=== PATIENT | male | born 1945 | race Caucasian/White ===

== ENCOUNTER 2017-01-17 22:37 | Emergency (ER) | payer MEDICARE, OTHER ==
[~2017-01-17] VITALS: Ht 167.6 cm; Wt 87.1 kg
[2017-01-17] MEDS ORDERED: IPRATRPIUM/ALBUTEROL 0.5/2.5MG 3 ML NEBU. NEB ONE (23:00)
[2017-01-17] MEDS ORDERED: IOHEXOL 300 MG/ML 75 ML VIAL. IV ONE (23:00)
[2017-01-17] MEDS ORDERED: methylPREDNISolone SOD SUCC PF 125 MG/2 ML VIAL. IV ONE (23:00)
[2017-01-17] MEDS ORDERED: CONTRAST GIVEN MC PRN (23:15)
[2017-01-17 23:16] LABS: BASO % 0 % (0-3); EOS % 0 % (0-3); HEMOGLOBIN 15.7 g/dL (13.0-17.5); LYMPH # 0.4 x10^3/uL (1.0-4.8); LYMPH % 2 % (24-48); MEAN CORPUSCULAR HEMOGLOBIN 30 pg (25-35); MEAN CORPUSCULAR HGB CONC 33 g/dL (31-37); MEAN CORPUSCULAR VOLUME 91 fL (79-100); MONO # 0.4 x10^3/uL (0.0-1.1); MONO % 2 % (0-9); NEUT % 97 % (31-73); PLATELET COUNT 156 x10^3/uL (140-400); RED BLOOD COUNT 5.16 x10^6/uL (4.30-5.70); RED CELL DISTRIBUTION WIDTH 14.3 % (11.5-14.5); WHITE BLOOD COUNT 23.8 x10^3/uL (4.0-11.0)
--- NOTE | 2017-01-17 23:34 | EKG ---
[address] [address] Test Date: 2017-01-17 Test Time: 23:24:49 Pat Name: JYOTI JACQUES Department: Room: Gender: M Criminal Defense Attorney: MIKE : 1945 Requested By: ARMAND FALK Order Number: [id number] Reading MD: Dilshad Landa MD Measurements Intervals [place] Rate: 92 P: 49 SC: 160 QRS: 75 QRSD: 102 T: 74 QT: 342 QTc: 428 Interpretive Statements SINUS RHYTHM Electronically Signed On 01-21-2017 14:11:32 [employer] by Dilshad Landa MD
[2017-01-17 23:39] LABS: ALBUMIN 1.6 g/dL (3.4-5.0); ALBUMIN/GLOBULIN RATIO 0.4 (1.0-1.7); CALCIUM 7.8 mg/dL (8.5-10.1); CREATININE 2.4 mg/dL (0.7-1.3); GFR 26.7; TOTAL BILIRUBIN 0.8 mg/dL (0.2-1.0); TOTAL PROTEIN 5.9 g/dL (6.4-8.2)
[2017-01-17 23:45] LABS: POTASSIUM 6.7 mmol/L (3.5-5.1)
[2017-01-17] MEDS ORDERED: IV NORMAL SALINE 1,000ML 1,000 ML IV ONE (23:45)
[2017-01-17 23:53] LABS: % BANDS 9 % (0-9); % LYMPHS 2 % (24-48); % MONOS 2 % (0-10); % SEGS 87 % (35-66); PLT ESTIMATE ADEQUATE (ADEQUATE)
[2017-01-18] MEDS ORDERED: INSULIN REGULAR 100 UNIT/ML 10ML VIAL. IV ONE
[2017-01-18] MEDS ORDERED: DEXTROSE 50% 25 GM / 50ML DISP.SYRIN. IV ONE
[2017-01-18] MEDS ORDERED: SODIUM POLYSTYRENE SULFONATE 15 GM/60 ML ORAL.SUSP. PO ONE
[2017-01-18] MEDS ORDERED: SODIUM BICARB ADULT 8.4% 50 MEQ/50 ML DISP.SYRIN. IV ONE
--- NOTE | 2017-01-18 00:27 | RAD ---
RS Compliance Statement: One or more of the following individualized dose reduction techniques were utilized for this examination: 1. Automated exposure control 2. Adjustment of the mA and/or kV according to patient size 3. Use of iterative reconstruction technique CT head without contrast 01/17/2017 11:50 PM INDICATION: Headache, weakness and slurred speech. History of lung and renal cancer. COMPARISON: None available. TECHNIQUE: Multiple axial CT images of the head were obtained from skull base through the vertex without intravenous contrast. FINDINGS: Head: Ventricles, sulci and basal cisterns are within normal limits. There is a 7 mm hyperattenuating lesion in the right postcentral gyrus, image 24). There is suggestion of subtle hypoattenuation along the margin which may reflect vasogenic edema. There is a hypoattenuating lesion in the left frontal lobe measuring 1.8 x 1.6 cm which may reflect vasogenic edema from underlying metastatic lesion. An additional hypoattenuating lesion in the anterior left temporal lobe measures 1.9 x 1.7 cm. There is no hydrocephalus. Posterior fossa is normal in appearance. Visualized portions of the orbits are normal. Paranasal sinuses are well aerated. Mastoid air cells are well aerated. Scalp and calvaria are normal. IMPRESSION: 1. Hyperattenuating focus in the right postcentral gyrus measuring 7 mm may represent a hemorrhagic metastasis versus cavernoma. Further evaluation with MRI with without contrast may be of benefit. 2. Hypoattenuating lesions in the left frontal, temporal lobes may represent vasogenic edema from underlying metastasis. This may be further evaluated with an MRI with and without contrast. Electronically signed by: Janelle Oliveira MD (01/18/2017 12:24 AM) [id number]
--- NOTE | 2017-01-18 01:11 | RAD ---
PQRS Compliance Statement: One or more of the following individualized dose reduction techniques were utilized for this examination: 1. Automated exposure control 2. Adjustment of the mA and/or kV according to patient size 3. Use of iterative reconstruction technique CT chest, abdomen and pelvis without contrast January 17, 2017 INDICATION: Weakness, fatigue. Lower abdominal pain. Chest pain. Shortness of air. History of end-stage lung and renal cancer. COMPARISON: None available TECHNIQUE: Multiple axial CT images of the chest, abdomen and pelvis were obtained without intravenous contrast. Coronal and sagittal reformats are provided. FINDINGS: CHEST: There is minimal heterogeneity of the right thyroid gland. There is a prominent right axillary lymph node measuring 1.3 cm by short axis. Right superior paratracheal lymph node measures 1.6 cm by short axis. Right paratracheal lymph node measures 1.7 cm by short axis. Right precarinal lymph node measures 2.2 cm by short axis. Subcarinal shakir conglomerate measures at least 6.6 x 4.1 cm. Findings are contiguous with a right infrahilar mass. Prevascular lymph node measures 2.8 cm by short axis. Left hilar lymph node measures 2.3 cm by short axis. Heart size is within normal limits. Thoracic aorta is normal in course and caliber. Coronary artery vascular calculations are present. There is no pericardial effusion. There is a small right pleural effusion with right lower lobe atelectasis. There is a right infrahilar mass with indistinct borders, limiting evaluation without intravenous contrast. There is complete occlusion of the right lower lobe bronchus with associated obstructive atelectasis. Right middle lobe and right upper lobe airways are patent. Mild paraseptal emphysema is present. There is a 7 mm solid noncalcified pulmonary nodule in the right upper lobe (series 2, image 39). There is a 7 mm solid noncalcified pulmonary nodule in the right upper lobe (series 2, image 47). Subpleural interstitial changes are noted in the left lung base. There is a left upper lobe mass measuring 2.1 x 1.6 cm. Solid noncalcified pulmonary nodule measures 8 mm in the left upper lobe (series 2, image 51). Nodular opacity in the left upper lobe measures 1.1 cm (series 2, image 43). There is a 6 mm solid noncalcified pulmonary nodule in the left lower lobe (series 2, image 54). ABDOMEN/PELVIS: Evaluation of the solid abdominal viscera is limited by lack of intravenous contrast. There is a 6 mm hypodense lesion in the right hepatic lobe which is indeterminate. Spleen is nonenlarged. Left adrenal nodule measures 3.2 x 1.5 cm. Right adrenal nodule measures 2.1 x 1.8 cm. Extensive peripancreatic inflammatory changes are present suggestive of pancreatitis. Findings are limited without intravenous contrast administration. Small volume free fluid is identified within the upper abdomen, especially along the greater curvature of the stomach and perihepatic region. Peripancreatic fluid is present, none of which appears encapsulated. Hyperattenuating material is noted with the gallbladder, which is nonspecific. The abdominal aorta is normal in course and caliber. There are scattered atherosclerotic ossification. A pao hepatis lymph node measures 10 mm by short axis. Left periaortic lymph node measures 9 mm by short axis. Gastrohepatic ligament nodes are present measuring up to 10 mm by short axis. Aortocaval lymph node measures 1.2 cm by short axis (series 2, image 121). Peripancreatic lymphadenopathy is noted measuring up to 1.2 cm by short axis (series 2, image 101). There is associated reactive changes involving the third and fourth portion of the duodenum. There is no free intraperitoneal air. There is a 1.9 x 1.7 cm exophytic lesion arising from the midpole of the right kidney which is indeterminate. Superior pole left kidney cystic lesion measures 2.1 cm. There is no hydronephrosis. No renal calculi are identified. Extensive colonic diverticulosis is noted with mural thickening in the sigmoid colon most suggestive of muscular hypertrophy rather than acute inflammatory changes. There is circumferential wall thickening involving the proximal transverse colon with associated inflammatory changes centered in regions of diverticula. Findings may represent diverticulitis versus adjacent reactive changes secondary to pancreatitis. Urinary bladder is within normal limits given degree of distention. Small volume free fluid is noted within the pelvis. Prostate and seminal vesicles are present. Right inguinal lymph node measures 2.4 cm by short axis. Right external iliac lymph node measures 10 mm by short axis. Additional right iliac lymph node more proximally measures 1.3 cm by short axis. Advanced degenerative changes are identified at L4-L5 with partial osseous fusion. No suspicious osseous lesions are identified. IMPRESSION: 1. Right infrahilar mass is incompletely evaluated without intravenous contrast. There is associated obstruction of the right lower lobe bronchus with obstructive atelectasis of the right lower lobe. There is small to moderate right pleural effusion. Hilar, mediastinal and right axillary lymphadenopathy is present, as detailed above. 2. Bilateral adrenal nodules suspicious for metastasis. 3. Extensive peripancreatic inflammatory changes most suggestive of interstitial edematous pancreatitis. There is small volume free fluid within the upper abdomen without a definite encapsulated fluid collection. No hemorrhagic components are identified. Evaluation for necrosis is limited without intravenous contrast. 4. There is circumferential wall thickening with inflammatory changes centered around diverticula in the proximal transverse colon suggestive of diverticulitis. No evidence for perforation or peridiverticular abscess. 5. 6 mm hypodense lesion in the right hepatic lobe is indeterminate. MRI of the abdomen may be of benefit. 6. Indeterminate renal lesions. Findings may represent simple cysts, however further evaluation with contrast-enhanced cross sectional imaging may be of benefit. 7. Extensive retroperitoneal and pelvic lymphadenopathy. Largest lymph node in the right inguinal region measures 2.4 cm by short axis and may be amenable for image guided tissue sampling. 8. Hyperattenuating material within the gallbladder may represent concentrated bile versus sludge versus cholelithiasis. Critical results were discussed with Dr. Fuller at 1:00 AM on 01/18/2017. Electronically signed by: Janelle Oliveira MD (01/18/2017 1:08 AM) [place] [id number]
[2017-01-18] MEDS ORDERED: VANCOMYCIN PER PHARMACY MC PRN (01:15)
[2017-01-18] MEDS: MORPHINE SULFATE 4 MG/ML DISP.SYRIN. IV/SQ PRN ×2 (01:34→03:59)
--- NOTE | 2017-01-18 02:16 | PHYS DOC ---
Adult General Chief Complaint Chief Complaint: SHORTNESS OF BREATH HPI HPI Patient is a 71 year old male who presents with weakness & shortness of breath. 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 Today he has generalized weakness, shortness of breath at rest, cough. His could not lift him from a chair because he was too weak to assist. He denies fevers/ chills, chest pain, vomiting, diarrhea, dysuria, extremity numbness/weakness or swelling. He does not complain of abdominal pain but has tenderness on exam. History limited by clinical condition initially but received supplemental information from & son when they arrived. He gets all his care [facility] the [facility] but they were on diversion tonight. Review of Systems Review of Systems Constitutional: Denies fever or chills Eyes: Denies change in visual acuity HENT: Denies nasal congestion or sore throat Respiratory: Reports cough & shortness of breath Cardiovascular: Denies chest pain or edema GI: Denies abdominal pain, nausea, vomiting, or diarrhea : Denies dysuria or hematuria Musculoskeletal: Denies back pain or joint pain Integument: Denies rash or skin lesions Neurologic: Denies headache, focal weakness or sensory changes All other systems were reviewed and found to be within normal limits, except as documented in this note. Current Medications Current Medications Current Medications Medications (Trade) Dose Ordered Sig/Rudy Start Time Stop Time Status Last Admin Dose Admin Albuterol/ Ipratropium (Duoneb) 3 ml 1X ONCE 01/17/17 23:00 01/18/17 01:07 DC 01/17/17 23:48 3 ML Dextrose 25 gm 1X ONCE 01/18/17 00:00 01/18/17 01:07 DC 01/18/17 00:25 25 GM Info (Do NOT chart on this entry -- for MONITORING) 1 each PRN DAILY PRN 01/17/17 23:15 01/19/17 23:14 Insulin Human Regular (NovoLIN R) 10 unit 1X ONCE 01/18/17 00:00 01/18/17 01:07 DC 01/18/17 00:24 10 UNIT Iohexol (Omnipaque 300 Mg/ml) 75 ml 1X ONCE 01/17/17 23:00 01/18/17 01:07 DC Levofloxacin/ Dextrose (Levaquin Per Pharmacy) 1 each PRN DAILY PRN 01/18/17 01:15 UNV Methylprednisolone Sodium Succinate (SOLU-Medrol 125MG VIAL) 125 mg 1X ONCE 01/17/17 23:00 01/18/17 01:06 DC 01/18/17 00:11 125 MG Metronidazole 100 ml @ 100 mls/hr 1X ONCE 01/18/17 01:15 01/18/17 02:14 UNV Morphine Sulfate (Morphine 4mg Syringe) 4 mg PRN Q15MIN PRN 01/18/17 01:30 01/19/17 01:29 UNV Sodium Polystyrene Sulfonate (Kayexalate) 30 gm 1X ONCE 01/18/17 00:00 01/18/17 01:06 DC 01/18/17 00:11 30 GM Sodium Bicarbonate 50 meq 1X ONCE 01/18/17 00:00 01/18/17 01:06 DC 01/18/17 00:10 50 MEQ Sodium Chloride 1,000 ml @ 1,000 mls/hr 1X ONCE 01/17/17 23:45 01/18/17 01:06 DC 01/18/17 00:11 1,000 MLS/HR Vancomycin HCl (Vanco Per Pharmacy) 1 each PRN DAILY PRN 01/18/17 01:15 UNV Allergies Allergies Allergies Coded Allergies Type Severity Reaction Last Updated Verified Penicillins Allergy Unknown 01/17/17 Yes Sulfa (Sulfonamide Antibiotics) Allergy Unknown 01/17/17 Yes bupropion Allergy Unknown 01/17/17 Yes buspirone Allergy Unknown 01/17/17 Yes escitalopram Allergy Unknown 01/17/17 Yes fluoxetine Allergy Unknown 01/17/17 Yes fluticasone Allergy Unknown 01/17/17 Yes mirtazapine Allergy Unknown 01/17/17 Yes nortriptyline Allergy Unknown 01/17/17 Yes oxycodone Allergy Unknown 01/17/17 Yes paroxetine Allergy Unknown 01/17/17 Yes salmeterol Allergy Unknown 01/17/17 Yes sertraline Allergy Unknown 01/17/17 Yes venlafaxine Allergy Unknown 01/17/17 Yes Physical Exam Physical Exam Constitutional: Well developed, well nourished, no acute distress, non-toxic appearance. HENT: Normocephalic, atraumatic, bilateral external ears normal, oropharynx moist, nose normal. Eyes: PERRLA, EOMI, conjunctiva normal, no discharge. Neck: supple, no stridor. no meningismus. Cardiovascular: RRR, no murmurs, no edema. Lungs & Thorax: coarse bilaterally, diminished in bases, few expiratory wheezes , no respiratory distress. Abdomen: soft, epigastric abdominal tenderness with voluntary guarding, no rebound tenderness, no masses or pulsatile masses. Skin: Warm, dry, no erythema, no rash. Back: No CVA tenderness. Extremities: No tenderness, no edema. Neurologic: Alert and oriented X 3, slurred speech, symmetric strength/ sensation to upper & lower extremities Psychologic: Affect normal, judgement normal, mood normal. Current Patient Data Vital Signs Vital Signs Date Time Temp Pulse Resp B/P (MAP) Pulse Ox O2 Delivery O2 Flow Rate FiO2 01/17/17 23:48 96 Nasal Cannula 4.0 Lab Results Laboratory Tests Test 01/17/17 22:55 White Blood Count 23.8 x10^3/uL (4.0-11.0) H Red Blood Count 5.16 x10^6/uL (4.30-5.70) Hemoglobin 15.7 g/dL (13.0-17.5) Hematocrit 47.0 % (39.0-53.0) Mean Corpuscular Volume 91 fL (79-100) Mean Corpuscular Hemoglobin 30 pg (25-35) Mean Corpuscular Hemoglobin Concent 33 g/dL (31-37) Red Cell Distribution Width 14.3 % (11.5-14.5) Platelet Count 156 x10^3/uL (140-400) Neutrophils (%) (Auto) 97 % (31-73) H Lymphocytes (%) (Auto) 2 % (24-48) L Monocytes (%) (Auto) 2 % (0-9) Eosinophils (%) (Auto) 0 % (0-3) Basophils (%) (Auto) 0 % (0-3) Neutrophils # (Auto) 23.0 x10^3uL (1.8-7.7) H Lymphocytes # (Auto) 0.4 x10^3/uL (1.0-4.8) L Monocytes # (Auto) 0.4 x10^3/uL (0.0-1.1) Eosinophils # (Auto) 0.0 x10^3/uL (0.0-0.7) Basophils # (Auto) 0.0 x10^3/uL (0.0-0.2) Segmented Neutrophils % 87 % (35-66) H Band Neutrophils % 9 % (0-9) Lymphocytes % 2 % (24-48) L Monocytes % 2 % (0-10) Platelet Estimate Adequate (ADEQUATE) D-Dimer (Marilin) 6.58 mg/L (0.00-0.50) H Sodium Level 133 mmol/L (136-145) L Potassium Level 6.7 mmol/L (3.5-5.1) *H Chloride Level 99 mmol/L (98-107) Carbon Dioxide Level 25 mmol/L (21-32) Anion Gap 9 (6-14) Blood Urea Nitrogen 99 mg/dL (8-26) H Creatinine 2.4 mg/dL (0.7-1.3) H Estimated GFR (Cockcroft-Gault) 26.7 BUN/Creatinine Ratio 41 (6-20) H Glucose Level 264 mg/dL (70-99) H Calcium Level 7.8 mg/dL (8.5-10.1) L Total Bilirubin 0.8 mg/dL (0.2-1.0) Aspartate Amino Transferase (AST) 54 U/L (15-37) H Alanine Aminotransferase (ALT) 86 U/L (16-63) H Alkaline Phosphatase 107 U/L (46-116) Troponin I Quantitative < 0.017 ng/mL (0-0.055) QN-[id number]-Type Natriuretic Peptide 715 pg/mL (0-124) H Total Protein 5.9 g/dL (6.4-8.2) L Albumin 1.6 g/dL (3.4-5.0) L Albumin/Globulin Ratio 0.4 (1.0-1.7) L Ethyl Alcohol Level < 10 mg/dL (0-10) EKG EKG interpreted by me: 2324: NSR rate 92, no acute ST/T wave changes, normal intervals, no ectopy.[] Radiology/Procedures Radiology/Procedures CXR, portable: interpreted by me: no cardiomegaly, RLL infiltrate. PROCEDURE: CT HEAD WO CONTRAST PQRS Compliance Statement: One or more of the following individualized dose reduction techniques were utilized for this examination: 1. Automated exposure control 2. Adjustment of the mA and/or kV according to patient size 3. Use of iterative reconstruction technique CT head without contrast 01/17/2017 11:50 PM INDICATION: Headache, weakness and slurred speech. History of lung and renal cancer. COMPARISON: None available. TECHNIQUE: Multiple axial CT images of the head were obtained from skull base through the vertex without intravenous contrast. FINDINGS: Head: Ventricles, sulci and basal cisterns are within normal limits. There is a 7 mm hyperattenuating lesion in the right postcentral gyrus, image 24). There is suggestion of subtle hypoattenuation along the margin which may reflect vasogenic edema. There is a hypoattenuating lesion in the left frontal lobe measuring 1.8 x 1.6 cm which may reflect vasogenic edema from underlying metastatic lesion. An additional hypoattenuating lesion in the anterior left temporal lobe measures 1.9 x 1.7 cm. There is no hydrocephalus. Posterior fossa is normal in appearance. Visualized portions of the orbits are normal. Paranasal sinuses are well aerated. Mastoid air cells are well aerated. Scalp and calvaria are normal. IMPRESSION: 1. Hyperattenuating focus in the right postcentral gyrus measuring 7 mm may represent a hemorrhagic metastasis versus cavernoma. Further evaluation with MRI with without contrast may be of benefit. 2. Hypoattenuating lesions in the left frontal, temporal lobes may represent vasogenic edema from underlying metastasis. This may be further evaluated with an MRI with and without contrast. Electronically signed by: Eduardo Bunn MD (01/18/2017 12:24 AM) [facility] DICTATED AND SIGNED BY: EDUARDO BUNN MD DATE: 01/18/17 0019 PROCEDURE: CT CHEST ABDOMEN PELVIS WO PQRS Compliance Statement: One or more of the following individualized dose reduction techniques were utilized for this examination: 1. Automated exposure control 2. Adjustment of the mA and/or kV according to patient size 3. Use of iterative reconstruction technique CT chest, abdomen and pelvis without contrast January 17, 2017 INDICATION: Weakness, fatigue. Lower abdominal pain. Chest pain. Shortness of air. History of end-stage lung and renal cancer. COMPARISON: None available TECHNIQUE: Multiple axial CT images of the chest, abdomen and pelvis were obtained without intravenous contrast. Coronal and sagittal reformats are provided. FINDINGS: CHEST: There is minimal heterogeneity of the right thyroid gland. There is a prominent right axillary lymph node measuring 1.3 cm by short axis. Right superior paratracheal lymph node measures 1.6 cm by short axis. Right paratracheal lymph node measures 1.7 cm by short axis. Right precarinal lymph node measures 2.2 cm by short axis. Subcarinal shakir conglomerate measures at least 6.6 x 4.1 cm. Findings are contiguous with a right infrahilar mass. Prevascular lymph node measures 2.8 cm by short axis. Left hilar lymph node measures 2.3 cm by short axis. Heart size is within normal limits. Thoracic aorta is normal in course and caliber. Coronary artery vascular calculations are present. There is no pericardial effusion. There is a small right pleural effusion with right lower lobe atelectasis. There is a right infrahilar mass with indistinct borders, limiting evaluation without intravenous contrast. There is complete occlusion of the right lower lobe bronchus with associated obstructive atelectasis. Right middle lobe and right upper lobe airways are patent. Mild paraseptal emphysema is present. There is a 7 mm solid noncalcified pulmonary nodule in the right upper lobe (series 2, image 39). There is a 7 mm solid noncalcified pulmonary nodule in the right upper lobe (series 2, image 47). Subpleural interstitial changes are noted in the left lung base. There is a left upper lobe mass measuring 2.1 x 1.6 cm. Solid noncalcified pulmonary nodule measures 8 mm in the left upper lobe (series 2, image 51). Nodular opacity in the left upper lobe measures 1.1 cm (series 2, image 43). There is a 6 mm solid noncalcified pulmonary nodule in the left lower lobe (series 2, image 54). ABDOMEN/PELVIS: Evaluation of the solid abdominal viscera is limited by lack of intravenous contrast. There is a 6 mm hypodense lesion in the right hepatic lobe which is indeterminate. Spleen is nonenlarged. Left adrenal nodule measures 3.2 x 1.5 cm. Right adrenal nodule measures 2.1 x 1.8 cm. Extensive peripancreatic inflammatory changes are present suggestive of pancreatitis. Findings are limited without intravenous contrast administration. Small volume free fluid is identified within the upper abdomen, especially along the greater curvature of the stomach and perihepatic region. Peripancreatic fluid is present, none of which appears encapsulated. Hyperattenuating material is noted with the gallbladder, which is nonspecific. The abdominal aorta is normal in course and caliber. There are scattered atherosclerotic ossification. A pao hepatis lymph node measures 10 mm by short axis. Left periaortic lymph node measures 9 mm by short axis. Gastrohepatic ligament nodes are present measuring up to 10 mm by short axis. Aortocaval lymph node measures 1.2 cm by short axis (series 2, image 121). Peripancreatic lymphadenopathy is noted measuring up to 1.2 cm by short axis (series 2, image 101). There is associated reactive changes involving the third and fourth portion of the duodenum. There is no free intraperitoneal air. There is a 1.9 x 1.7 cm exophytic lesion arising from the midpole of the right kidney which is indeterminate. Superior pole left kidney cystic lesion measures 2.1 cm. There is no hydronephrosis. No renal calculi are identified. Extensive colonic diverticulosis is noted with mural thickening in the sigmoid colon most suggestive of muscular hypertrophy rather than acute inflammatory changes. There is circumferential wall thickening involving the proximal transverse colon with associated inflammatory changes centered in regions of diverticula. Findings may represent diverticulitis versus adjacent reactive changes secondary to pancreatitis. Urinary bladder is within normal limits given degree of distention. Small volume free fluid is noted within the pelvis. Prostate and seminal vesicles are present. Right inguinal lymph node measures 2.4 cm by short axis. Right external iliac lymph node measures 10 mm by short axis. Additional right iliac lymph node more proximally measures 1.3 cm by short axis. Advanced degenerative changes are identified at L4-L5 with partial osseous fusion. No suspicious osseous lesions are identified. IMPRESSION: 1. Right infrahilar mass is incompletely evaluated without intravenous contrast. There is associated obstruction of the right lower lobe bronchus with obstructive atelectasis of the right lower lobe. There is small to moderate right pleural effusion. Hilar, mediastinal and right axillary lymphadenopathy is present, as detailed above. 2. Bilateral adrenal nodules suspicious for metastasis. 3. Extensive peripancreatic inflammatory changes most suggestive of interstitial edematous pancreatitis. There is small volume free fluid within the upper abdomen without a definite encapsulated fluid collection. No hemorrhagic components are identified. Evaluation for necrosis is limited without intravenous contrast. 4. There is circumferential wall thickening with inflammatory changes centered around diverticula in the proximal transverse colon suggestive of diverticulitis. No evidence for perforation or peridiverticular abscess. 5. 6 mm hypodense lesion in the right hepatic lobe is indeterminate. MRI of the abdomen may be of benefit. 6. Indeterminate renal lesions. Findings may represent simple cysts, however further evaluation with contrast-enhanced cross sectional imaging may be of benefit. 7. Extensive retroperitoneal and pelvic lymphadenopathy. Largest lymph node in the right inguinal region measures 2.4 cm by short axis and may be amenable for image guided tissue sampling. 8. Hyperattenuating material within the gallbladder may represent concentrated bile versus sludge versus cholelithiasis. Critical results were discussed with Dr. Fuller at 1:00 AM on 01/18/2017. Electronically signed by: Eduardo Bunn MD (01/18/2017 1:08 AM) [id number] DICTATED AND SIGNED BY: EDUARDO BUNN MD DATE: 01/18/17 003[] Course & Med Decision Making Course & Med Decision Making Pertinent Labs and Imaging studies reviewed. (See chart for details) The patient presents with weakness & shortness of breath. History quite limited initially but more information available when family came. Gave duoneb & solumedrol. Gave IV fluids & pain medication. Obtained labs, EKG, CXR, CT abdomen/pelvis. CXR showed possible infiltrate though no baseline available for comparison & he has known lung cancer. CT also concerning for possible infiltrate, with elevated WBC & increased shortness of breath will treat as pneumonia for now. Obtained lactic acid & blood culture, will give broad spectrum antibiotics for healthcare associated pneumonia. He has hyperkalemia & acute renal failure, no EKG changes so will give insulin/D50, sodium bicarbonate, kayexalate. Gave IV fluids. Found to have acute pancreatitis with possible concurrent diverticulitis. Antibiotics given as above. [facility] beds available per Dr. Brown. They are not able to accept for transfer. Discussed at length with patient & family. They would really like him to go to [facility] rather than other hospital. He has abnormal head CT, not known whether this is new or chronic finding, but no midline shift & patient/family state he already has known brain mets which is why he is having radiation therapy, not a candidate for surgery, no new neuro or speech changes today. They state he is DNR status. Discussed with Dr. Perez , hospitalist at , who does agree to accept for transfer & admission. The patient is in critical condition with guarded prognosis but stable for transfer at this time. Critical care time: 60 minutes [] Dragon Disclaimer Dragon Disclaimer This electronic medical record was generated, in whole or in part, using a voice recognition dictation system. Departure Departure: Impression: Primary Impression: Hyperkalemia Additional Impressions: Acute renal failure Acute pancreatitis Acute diverticulitis Metastatic lung cancer (metastasis from lung to other site) Metastatic cancer to brain Disposition: 05 XFER OTHER Condition: CRITICAL Referrals: PCP,UNKNOWN (PCP) Problem Qualifiers ARMAND FALK MD Jan 18, 2017 02:16
[2017-01-18] MEDS ORDERED: IV NORMAL SALINE 500ML 500 ML ONE (02:26)
[2017-01-18] MEDS ORDERED: VANCOMYCIN 1 GM VIAL. ONE ×2 (02:27→02:28)
[2017-01-18] MEDS ORDERED: VANCOMYCIN 2 GM in IV NORMAL SALINE 500ML 500 ML IV ONE (02:30)
[2017-01-18 04:10] VITALS: BP 141/72
--- NOTE | 2017-01-18 07:52 | RAD ---
AP chest radiograph 01/17/2017 Clinical indication: Known carcinoma and possible infiltrate. Comparison: CT chest 01/17/2017 Findings: Heart size is normal without significant pulmonary venous congestion. There is a small right pleural effusion. There are patchy opacities in both lung bases. There is abnormal contour to the AP window. No pneumothorax. Moderate bilateral glenohumeral arthrosis. Impression: 1. Small right pleural effusion. 2. Patchy bibasilar opacities which may represent atelectasis, aspiration or multifocal infection. 3. Abnormal contour at the left reid and AP window, may be due to lymphadenopathy. Correlation with same-day CT chest is recommended.
== END 2017-01-18 04:15 | disposition short-term general hospital (02) ==
LOC: ER 22:37
DX: E87.5 Hyperkalemia (principal); N17.9 Acute kidney failure, unspecified; K85.90 Acute pancreatitis without necrosis or infection, unspecified; K57.92 Diverticulitis of intestine, part unspecified, without perforation or abscess without bleeding; C78.00 Secondary malignant neoplasm of unspecified lung; C79.31 Secondary malignant neoplasm of brain; Z88.0 Allergy status to penicillin; Z88.2 Allergy status to sulfonamides; Z88.5 Allergy status to narcotic agent; Z88.8 Allergy status to other drugs, medicaments and biological substances
CPT/HCPCS: 36415; 70450; 71010; 71250; 74176; 80053; 83605; 83690; 83880; 84484; 85007; 85025; 85379; 87040; 93005; 94640; 96361; 96365; 96367; 96368; 96375; 96376; 99291; G0480; J1815; J1956; J2270; J2930; J3370; J3490; J7040; J7620; J7030